=== PATIENT | female | born 1945 ===

== ENCOUNTER 2018-03-21 12:04 | Outpatient (CLI) | payer BC, MEDICARE ==
[~2018-03-21 12:04] MED LIST: Gadobenate Dimeglumine 529 MG/1 ML (20ML VIAL) ONE
[2018-03-21 13:27] LABS: Estimated GFR-MDRD - POC Greater than 90
--- NOTE | 2018-03-21 14:51 | MRI ---
MRA NECK WITH AND WITHOUT GADOLINIUM CONTRAST: HISTORY: Carotid sinus syncope. Abnormal sonogram. FINDINGS: Good flow from the thorax is demonstrated into each carotid artery and vertebral artery. Each caroti d bifurcation is widely patent. Good flow into each internal carotid artery. No focal stenosis is a pparent. The cervical portions of each vertebral artery are within normal limits. IMPRESSION: No evidence of extracranial carotid stenosis. No significant abnormalities are demonstrated. POS: [facility]
== END 2018-03-21 12:05 | disposition home or self-care (01) ==
LOC: BICMRI 12:04
PROVIDERS: ATTEND Internal Medicine Cardiovascular Disease
DX: G90.01 Carotid sinus syncope (principal)
CPT/HCPCS: 70549; 82565